=== PATIENT | male | born 1985 | race Caucasian/White ===

== ENCOUNTER 2016-05-16 22:06 | Emergency (ER) | payer OTHER ==
--- NOTE | 2016-05-16 23:15 | ED NURSING NOTES ---
Clinical Report - Nurses [facility] [place] [address] 05/16/2016 22:05 Patient: JERMAINE FITZPATRICK TRIAGE Triage time 22:39. Acuity: LEVEL 5. Chief Complaint: RIGHT LOWER TOOTHACHE and (Jermaine says he has been on and off antibiotics dealing with this for about 2 years. He says tonight the pain is so bad (01/12). He says he did not finish his last antibiotic prescribed (prescribed from Chelsie); prescribed around 5 months ago. He has no seen a dentist.). Alert. No acute distress. SEPSIS SCREEN: Sepsis Screen: negative. Negative (no infection suspected/documented). --22:44 Aubrey Tom R.N. 22:38 05/16/16. BP: 131/90 (regular adult cuff) taken on the left arm, via an automated monitor, while sitting. HR: 100 (normal rate). RR: 16 (regular, unlabored and normal). O2 saturation: 99% on room air. Temp: 97.9 F (oral). Pain level now: 01/12. --22:44 Aubrey Tom R.N. Weight: 68 kg stated. Height/Length: 72 inches Per Patient. BMI: 20.3. --22:39 Aubrey Tom R.N. Medications None. --22:40 Aubrey Tom R.N. Medication/allergy information source: the patient. --22:44 Aubrey Tom R.N. Allergies No Known Drug Allergy. --22:40 Aubrey Tom R.N. History Arrived by private vehicle. Historian: patient. Accompanied by friend. Primary physician (Chelsie in [place]). Onset. (On or off couple years). He has had a sore throat and a subjective fever. He has had mild right ear pain. PAST MEDICAL HX: Immunizations: has received tetanus within 5 years; seasonal influenza. SOCIAL HX: Current every day light tobacco smoker (cigarette)- less than 1/2 a pack per day. History of occasional drug use: marijuana. Recently used drugs yesterday. No alcohol use. He has not traveled outside the [place] The patient was not exposed to MRSA. ABUSE ASSESSMENT: Abuse assessment: The patient was asked "Do you feel safe in your home?" and "Has anyone hurt you or threatened to hurt you?". No report of abuse. SELF HARM ASSESSMENT: A self harm assessment was performed. The patient answered "no" to the question "Do you have thoughts of harming or killing yourself?" and "Have you recently had thoughts about harming or killing others?". FALL RISK ASSESSMENT: Fall risk assessment completed. No fall risk identified. NUTRITIONAL RISK ASSESSMENT: The nutritional risk assessment revealed no deficiencies. FUNCTIONAL ASSESSMENT: Functional assessment: no impairments noted. LEARNING NEEDS ASSESSMENT: The learning needs assessment revealed no barriers. SKIN INTEGRITY ASSESSMENT: Skin integrity risk assessment completed. No skin integrity risk identified. --22:44 Aubrey Tom R.N. PROBLEMS: ADHD - Attention Deficit Hyperactivity Disorder. Burn. --22:40 Aubrey Tom R.N. Assessment GENERAL / NEURO / PSYCH: Alert. Oriented X 4. Appears in no acute distress. [place] Coma Scale: 15- eyes open spontaneously (4); best verbal response- oriented x 4 (5); best motor response- obeys commands (6). Patient appears calm and cooperative. RESPIRATORY: Respirations not labored. SKIN: Skin is warm and dry. --22:44 Aubrey Tom R.N. Interventions ID band on patient. To treatment room. --22:44 Aubrey Tom R.N. PHYSICAL ASSESSMENT 22:45. Ambulatory to room. GENERAL / NEURO / PSYCH: Alert. Oriented X 4. Appears in no acute distress. HEENT: Voice within normal limits. RESPIRATORY: No respiratory distress. Respirations not labored. SKIN: Skin is warm and dry. --23:18 Aubrey Tom R.N. NURSING PROGRESS NOTES 23:10. The initial plan of care for this patient has been created This plan of care was discussed with the patient. Reassurance given to the patient. Two patient identifiers checked. Call light placed in reach. Side rails up x 1. Bed placed in lowest position. Brakes of bed on. Patient ready for evaluation- PA notified. --23:17 Aubrey Tom R.N. 23:23 05/16/2016 Amoxicillin PO Capsules 500 mg given. Allergies verified and confirmed 5 rights. --23:23 Emily Ruby. DISPOSITION / DISCHARGE Departure time: 23:23. Condition at departure: stable. The goals identified in the patient's plan of care were met. No learning barriers present. Discharge instructions provided and reviewed with the patient. Reviewed medication(s) side effects, precautions, dosing and course information. Prescription(s) given to the patient (Jermaine verbalizes importance of finishing all prescribed antibiotic.). Reviewed referral to a dentist for followup (Jermaine verbalizes importance of f/u with dentist. Gave him pamphlet for [facility] and dental resource list.). Patient verbalized understanding. Written instructions provided in Yi. ( Jermaine verbalizes understanding of all d/c instructions including need for f/u with dentist. He has no questions and voices no concerns at this time.). The patient was discharged by the physician multimedia production assistant. He was discharged home and accompanied by family. He left the Emergency Department ambulatory and via private vehicle. Family member driving. ALEXA COMA SCORE: [place] Coma Scale: 15- eyes open spontaneously (4); best verbal response- oriented x 4 (5); best motor response- obeys commands (6). --23:23 Aubrey Tom R.N. 23:21 05/16/16. BP: 131/85 (regular adult cuff) taken on the left arm, via an automated monitor, while sitting. HR: 89 (normal rate). RR: 16 (regular, unlabored and normal). O2 saturation: 99% on room air. Temp: 97.5 F (oral). Pain level now: 01/12. --23:23 Aubrey Tom R.N. Locked/Released at 05/16/2016 23:24 by Emily Ruby,
--- NOTE | 2016-05-16 23:15 | ED CLINICAL REPORT ---
Clinical Report - Physicians/Mid Levels [facility] [address] [place] [address] 05/16/2016 22:05 Patient: JERMAINE FITZPATRICK Time Seen: 232May 16 2016. Arrived- By private vehicle. Historian- patient. HISTORY OF PRESENT ILLNESS Chief Complaint: DENTAL PAIN. This started 1 years [employer] and is still present. Pain described as moderate. No sore throat, mouth sores or nasal discharge. (Patient reports DEVELOPING ON THE RIGHT SIDE OVER THE LAST 1-2 YEARS. REPORTS HE HAS NOT SEEN A DENTIST. DENIES ANY DIFFICULTY SWELLING. REPORTS PAIN RADIATES TO THE RIGHT EAR. DENIES ANY RECENT ANTIBIOTICS, HOWEVER WAS ON ANTIBIOTICS ABOUT 5 MONTHS PREVIOUSLY, DID NOT COMPLETELY TOUCH, NOR DID HE SEE A DENTIST AFTER SUCH. DENIES Sore throat). REVIEW OF SYSTEMS No fever, cough, missed periods or headache. All systems otherwise negative, except as recorded above. SOCIAL HISTORY Smoker- current status unknown. History of drug use: marijuana. Not an IV drug user. No alcohol use. ADDITIONAL NOTES The nursing notes have been reviewed. PHYSICAL EXAM Vital Signs: 05/16/2016 22:38 BP: 131/90. HR: 100. RR: 16. O2 saturation: 99%. Temp: 97.9 F. Pain level now: 10/10. Head: Normal external inspection. ENT: Nose normal. Lips normal. Uvula midline. No mouth ulcerations, tonsillar exudate, muffled or hoarse voice or drooling. The mucous membranes are not dry. (r. gumline erythema, with decay of r. lower molar, with no palpable mass. Uvula midline. No drainage.). Neck: Mild left anterior neck lymphadenopathy present. CVS: Normal heart rate and rhythm. Heart sounds normal. Respiratory: No respiratory distress. Breath sounds normal. Skin: Normal skin color. Neuro: Oriented X 3. PROGRESS AND PROCEDURES Course of Care: UVULA MIDLINE, NO SIGNS OF MARYANN'S ANGINA. PATIENT WITH NO PALPABLE ABSCESS. NO FACIAL SWELLING. Tolerating po. Patient is stable. Physical exam findings are improved. Symptoms better. Patient/family counseled. Disposition: Discharged. CLINICAL IMPRESSION Moderate dental pain. INSTRUCTIONS Drink plenty of fluids. Prescription Medications: Amoxicillin 500 mg tablets: take 1 orally every 8 hours for 10 days. No refills. Ibuprofen 800 mg tablets: take 1 tablet orally every 8 hours for 5 days, as needed for pain. Dispense fifteen (15). No refill. Follow-up: Follow up with your doctor in three days. (Electronically signed by Cristina Benoit P.A.-C 05/16/2016 23:33)
--- NOTE | 2016-05-16 23:15 | ED CLINICAL REPORT ---
Clinical Report - Physicians/Mid Levels [facility] [address] [place] [place] [address] 05/16/2016 22:05 Patient: JERMAINE FITZPATRICK Time Seen: 232May 16 2016. Arrived- By private vehicle. Historian- patient. HISTORY OF PRESENT ILLNESS Chief Complaint: DENTAL PAIN. This started 1 years [employer] and is still present. Pain described as moderate. No sore throat, mouth sores or nasal discharge. (Patient reports DEVELOPING ON THE RIGHT SIDE OVER THE LAST 1-2 YEARS. REPORTS HE HAS NOT SEEN A DENTIST. DENIES ANY DIFFICULTY SWELLING. REPORTS PAIN RADIATES TO THE RIGHT EAR. DENIES ANY RECENT ANTIBIOTICS, HOWEVER WAS ON ANTIBIOTICS ABOUT 5 MONTHS PREVIOUSLY, DID NOT COMPLETELY TOUCH, NOR DID HE SEE A DENTIST AFTER SUCH. DENIES Sore throat). REVIEW OF SYSTEMS No fever, cough, missed periods or headache. All systems otherwise negative, except as recorded above. SOCIAL HISTORY Smoker- current status unknown. History of drug use: marijuana. Not an IV drug user. No alcohol use. ADDITIONAL NOTES The nursing notes have been reviewed. PHYSICAL EXAM Vital Signs: 05/16/2016 22:38 BP: 131/90. HR: 100. RR: 16. O2 saturation: 99%. Temp: 97.9 F. Pain level now: 10/10. Head: Normal external inspection. ENT: Nose normal. Lips normal. Uvula midline. No mouth ulcerations, tonsillar exudate, muffled or hoarse voice or drooling. The mucous membranes are not dry. (r. gumline erythema, with decay of r. lower molar, with no palpable mass. Uvula midline. No drainage.). Neck: Mild left anterior neck lymphadenopathy present. CVS: Normal heart rate and rhythm. Heart sounds normal. Respiratory: No respiratory distress. Breath sounds normal. Skin: Normal skin color. Neuro: Oriented X 3. PROGRESS AND PROCEDURES Course of Care: UVULA MIDLINE, NO SIGNS OF MARYANN'S ANGINA. PATIENT WITH NO PALPABLE ABSCESS. NO FACIAL SWELLING. Tolerating po. Patient is stable. Physical exam findings are improved. Symptoms better. Patient/family counseled. Disposition: Discharged. CLINICAL IMPRESSION Moderate dental pain. INSTRUCTIONS Drink plenty of fluids. Prescription Medications: Amoxicillin 500 mg tablets: take 1 orally every 8 hours for 10 days. No refills. Ibuprofen 800 mg tablets: take 1 tablet orally every 8 hours for 5 days, as needed for pain. Dispense fifteen (15). No refill. Follow-up: Follow up with your doctor in three days. (Electronically signed by Cristina Benoit P.A.-C 05/16/2016 23:33)
--- NOTE | 2016-05-16 23:15 | ED ORDER SUMMARY ---
..... Patient: JERMAINE FITZPATRICK OrderSheet [facility] VisitID: [id number] [address] [place] [address] 31y, M Registration Date/Time: 05/16/2016 ORDER SHEET Weight: 68.0 kg (stated) Allergies: No Known Drug Allergy GENERAL ORDERS: MEDICATION ORDERS: Amoxicillin PO 500 mg (NOW) (23:14 05/16/2016 Nicci P.A.-C) (23:23 HSoule) Motrin PO 800 mg (NOW) (23:14 05/16/2016 Nicci P.A.-C) (Cancelled: Patient [id number]:23 HSoule) IV FLUIDS: ORDER SHEET NOTES: [Electronically signed by Emily Ruby (23:23 05/16/2016)] [Electronically signed by Cristina Benoit P.A.-C (23:33 05/16/2016)] [Electronically locked/signed by Emily Ruby (23:23 05/16/2016)]
--- NOTE | 2016-05-16 23:15 | ED ORDER SUMMARY ---
..... Patient: JERMAINE FITZPATRICK OrderSheet [facility] VisitID: [id number] [address] [place] [address] 31y, M Registration Date/Time: 05/16/2016 ORDER SHEET Weight: 68.0 kg (stated) Allergies: No Known Drug Allergy GENERAL ORDERS: MEDICATION ORDERS: Amoxicillin PO 500 mg (NOW) (23:14 05/16/2016 Nicci P.A.-C) (23:23 HSoule) Motrin PO 800 mg (NOW) (23:14 05/16/2016 Nicci P.A.-C) (Cancelled: Patient [id number]:23 HSoule) IV FLUIDS: ORDER SHEET NOTES: [Electronically signed by Emily Ruby (23:23 05/16/2016)] [Electronically signed by Cristina Benoit P.A.-C (23:33 05/16/2016)] [Electronically locked/signed by Emily Ruby (23:23 05/16/2016)]
--- NOTE | 2016-05-16 23:33 | ED MED RECONCILIATION SUMMARY ---
Patient: JERMAINE FITZPATRICK Medication Reconciliation Report [facility] VisitID: [id number] [address] [place] [address] 31y, M Registration Date/Time: 05/16/2016 Weight: 68.0 kg Height/Length: 72 in. BMI: 20.3 ALLERGIES: No Known Drug Allergy The patient's Home Medications are listed below: NONE. The source(s) of the original Home Medication information: patient The following Medications were given to the patient in the Emergency Department: Amoxicillin [PO] PO 500 mg, administered: 05/16/2016 11:23:00 PM The following Medications were prescribed to the patient: Amoxicillin 500 mg tablets: take 1 orally every 8 hours for 10 days. No refills. -- Cristina Benoit, P.A.-Tyrone Ibuprofen 800 mg tablets: take 1 tablet orally every 8 hours for 5 days, as needed for pain. Dispense fifteen (15). No refill. -- Cristina Benoit, P.A.-C
--- NOTE | 2016-05-16 23:33 | ED MAR SUMMARY ---
..... Medication Administration Record [facility] [address] [place] [address] Patient: JERMAINE FITZPATRICK Visit ID: [id number] 31y, M Weight: 68.0 kg Height/Length: 72 in BMI: 20.3 ALLERGIES: No Known Drug Allergy Given 23:23 05/16/2016 Emily Ruby, Medication Administered: AMOXICILLIN [PO], Dose: 500 mg Capsules PO. Medication Ordered: Amoxicillin PO 500 mg (NOW).
--- NOTE | 2016-05-16 23:33 | ED MAR SUMMARY ---
..... Medication Administration Record [facility] [address] [place] [address] Patient: JERMAINE FITZPATRICK Visit ID: [id number] 31y, M Weight: 68.0 kg Height/Length: 72 in BMI: 20.3 ALLERGIES: No Known Drug Allergy Given 23:23 05/16/2016 Emily Ruby, Medication Administered: AMOXICILLIN [PO], Dose: 500 mg Capsules PO. Medication Ordered: Amoxicillin PO 500 mg (NOW).
--- NOTE | 2016-05-16 23:33 | ED DISCHARGE INSTRUCTIONS ---
Patient: JERMAINE FITZPATRICK General Instructions [facility] VisitID: [id number] [place] [address] 31y, M Registration Date/Time: 05/16/2016 Moderate dental pain. INSTRUCTIONS Drink plenty of fluids. Prescription Medications: Amoxicillin 500 mg tablets: take 1 orally every 8 hours for 10 days. No refills. Ibuprofen 800 mg tablets: take 1 tablet orally every 8 hours for 5 days, as needed for pain. Dispense fifteen (15). No refill. Follow-up: Follow up with your doctor in three days. ADDITIONAL INFORMATION Dental Pain A crack or cavity in the tooth, which exposes the sensitive inner area of the tooth can cause tooth pain. An infection in the gum or the root of the tooth can cause pain and swelling. The pain is often made worse by drinking hot or cold fluids, or biting on hard foods. Pain may spread from the tooth to the ear or jaw on the same side. Home Care: Avoid hot and cold foods and liquids since your tooth may be sensitive to temperature changes. If your tooth is chipped or cracked, or if there is a large open cavity, apply OIL OF CLOVES (available arau-bbg-kvcuxnm in drug stores) directly to the tooth to reduce pain. Some pharmacies carry an mipi-mpg-giyppni "toothache kit." This contains a paste, which can be applied over the exposed tooth to decrease sensitivity. A cold pack on your jaw over the sore area may help reduce pain. You may use acetaminophen (Tylenol) or ibuprofen (Motrin, Advil) to control pain, unless another medicine was prescribed. [ NOTE: If you have chronic liver or kidney disease or ever had a stomach ulcer or GI bleeding, talk with your doctor before using these medicines.] If you have signs of an infection, an antibiotic will be given. Take it as directed. Follow-Up as directed with a dentist. Your pain may go away with the treatment given. However, only a dentist can fully evaluate and treat the cause and prevent the pain from coming back again. TOOTHACHE IS A SIGN OF DISEASE IN YOUR TOOTH AND SHOULD BE EXAMINED AND TREATED BY A DENTIST. Get Prompt Medical Attention if any of the following occur: Your face becomes swollen or red Pain worsens or spreads to the neck Fever over 100.4 F (38.0 C) Unusual drowsiness; headache or stiff neck; weakness or fainting Pus drains from the tooth Difficulty swallowing or breathing Dental Abscess A dental abscess is an infection of the tooth socket. It often starts with a crack or cavity in the tooth. A pocket of pus forms between the tooth and the bone. The infection causes pain and swelling of the gum, cheek or jaw. The pain is often made worse by drinking hot or cold fluids, or biting on hard foods. Pain may be felt in the facial sinus or in the ear. A severe infection can interfere with swallowing and breathing. In the emergency department or clinic, you will be started on an antibiotic. However, final treatment requires drainage of the pus. This can be done by removing the tooth or performing a root canal. A root canal is done by an oral surgeon and involves drilling an opening in the tooth to drain the pus. After the infection has healed, a crown is placed over the tooth. Home care The following guidelines will help you care for your abscess at home: Avoid hot and cold foods and liquids since your tooth may be sensitive to temperature changes. If your tooth is chipped or cracked, or if there is a large open cavity, applyoil of cloves(available bezc-xuv-kswutmv in drug stores) directly to the tooth to reduce pain. Some pharmacies carry an vhrp-oyh-tldaghj "toothache kit". This contains oil of cloves and a paste, which can be applied over the exposed tooth to decrease sensitivity. Apply an ice pack (ice cubes in a plastic bag, wrapped in a towel) over the injured area for 20 minutes every 12 hours the first day for pain relief. Continue this 34 times a day until the pain and swelling goes away. You may use acetaminophen or ibuprofen to control pain, unless another medicine was prescribed. If you have chronic liver or kidney disease or ever had a stomach ulcer or GI bleeding, talk with your doctor before using these medicines. An antibiotic will be prescribed. Take it as directed until completed, even if you are feeling better sooner. Follow-up care Follow up as directed with a dentist or oral surgeon. Even though your pain may improve with the treatment given today, only a dentist or oral surgeon can provide full treatment for this problem. When to seek medical care Get prompt medical attention or contact your doctor if any of the following occur: Your face or eyelid becomes swollen or red Pain worsens or spreads to the neck Fever over 100.4F (38.0C) Unusual drowsiness; headache or stiff neck; weakness, or fainting Pus drains from the gum or tooth Difficulty talking, swallowing or breathing Unable to open your mouth wide Amoxicillin Trihydrate Oral tablet What is this medicine? AMOXICILLIN (a mox i TONIO in) is a penicillin antibiotic. It is used to treat certain kinds of bacterial infections. It will not work for colds, flu, or other viral infections. How should I use this medicine? Take this medicine by mouth with a glass of water. Follow the directions on your prescription label. You may take this medicine with food or on an empty stomach. Take your medicine at regular intervals. Do not take your medicine more often than directed. Take all of your medicine as directed even if you think your are better. Do not skip doses or stop your medicine early. Talk to your voice network engineer regarding the use of this medicine in children. While this drug may be prescribed for selected conditions, precautions do apply. What side effects may I notice from receiving this medicine? Side effects that you should report to your doctor or health wound care physician as soon as possible: allergic reactions like skin rash, itching or hives, swelling of the face, lips, or tongue breathing problems dark urine redness, blistering, peeling or loosening of the skin, including inside the mouth seizures severe or watery diarrhea trouble passing urine or change in the amount of urine unusual bleeding or bruising unusually weak or tired yellowing of the eyes or skin Side effects that usually do not require medical attention (report to your doctor or health wound care physician if they continue or are bothersome): dizziness headache stomach upset trouble sleeping What may interact with this medicine? amiloride control pills chloramphenicol macrolides probenecid sulfonamides tetracyclines What if I miss a dose? If you miss a dose, take it as soon as you can. If it is almost time for your next dose, take only that dose. Do not take double or extra doses. Where should I keep my medicine? Keep out of the reach of children. Store between 68 and 77 degrees F (20 and 25 degrees C). Keep bottle closed tightly. Throw away any unused medicine after the expiration date. What should I tell my health care provider before I take this medicine? They need to know if you have any of these conditions: asthma kidney disease an unusual or allergic reaction to amoxicillin, other penicillins, cephalosporin antibiotics, other medicines, foods, dyes, or preservatives or trying to get breast-feeding What should I watch for while using this medicine? Tell your doctor or health wound care physician if your symptoms do not improve in 2 or 3 days. Take all of the doses of your medicine as directed. Do not skip doses or stop your medicine early. If you are diabetic, you may get a false positive result for sugar in your urine with certain brands of urine tests. Check with your doctor. Do not treat diarrhea with xpar-svn-minjkpd products. Contact your doctor if you have diarrhea that lasts more than 2 days or if the diarrhea is severe and watery. You have been given the following additional information: Dental Pain Tooth Abscess Amoxicillin Trihydrate Oral tablet (Electronically signed by Cristina Benoit P.A.-C 05/16/2016 23:33)
--- NOTE | 2016-05-16 23:33 | ED DISCHARGE INSTRUCTIONS ---
Patient: JERMAINE FITZPATRICK General Instructions [facility] VisitID: [id number] [place] [address] 31y, M Registration Date/Time: 05/16/2016 Moderate dental pain. INSTRUCTIONS Drink plenty of fluids. Prescription Medications: Amoxicillin 500 mg tablets: take 1 orally every 8 hours for 10 days. No refills. Ibuprofen 800 mg tablets: take 1 tablet orally every 8 hours for 5 days, as needed for pain. Dispense fifteen (15). No refill. Follow-up: Follow up with your doctor in three days. ADDITIONAL INFORMATION Dental Pain A crack or cavity in the tooth, which exposes the sensitive inner area of the tooth can cause tooth pain. An infection in the gum or the root of the tooth can cause pain and swelling. The pain is often made worse by drinking hot or cold fluids, or biting on hard foods. Pain may spread from the tooth to the ear or jaw on the same side. Home Care: Avoid hot and cold foods and liquids since your tooth may be sensitive to temperature changes. If your tooth is chipped or cracked, or if there is a large open cavity, apply OIL OF CLOVES (available qurz-zfs-oorwwct in drug stores) directly to the tooth to reduce pain. Some pharmacies carry an vuwk-wey-edyfioh "toothache kit." This contains a paste, which can be applied over the exposed tooth to decrease sensitivity. A cold pack on your jaw over the sore area may help reduce pain. You may use acetaminophen (Tylenol) or ibuprofen (Motrin, Advil) to control pain, unless another medicine was prescribed. [ NOTE: If you have chronic liver or kidney disease or ever had a stomach ulcer or GI bleeding, talk with your doctor before using these medicines.] If you have signs of an infection, an antibiotic will be given. Take it as directed. Follow-Up as directed with a dentist. Your pain may go away with the treatment given. However, only a dentist can fully evaluate and treat the cause and prevent the pain from coming back again. TOOTHACHE IS A SIGN OF DISEASE IN YOUR TOOTH AND SHOULD BE EXAMINED AND TREATED BY A DENTIST. Get Prompt Medical Attention if any of the following occur: Your face becomes swollen or red Pain worsens or spreads to the neck Fever over 100.4 F (38.0 C) Unusual drowsiness; headache or stiff neck; weakness or fainting Pus drains from the tooth Difficulty swallowing or breathing Dental Abscess A dental abscess is an infection of the tooth socket. It often starts with a crack or cavity in the tooth. A pocket of pus forms between the tooth and the bone. The infection causes pain and swelling of the gum, cheek or jaw. The pain is often made worse by drinking hot or cold fluids, or biting on hard foods. Pain may be felt in the facial sinus or in the ear. A severe infection can interfere with swallowing and breathing. In the emergency department or clinic, you will be started on an antibiotic. However, final treatment requires drainage of the pus. This can be done by removing the tooth or performing a root canal. A root canal is done by an oral surgeon and involves drilling an opening in the tooth to drain the pus. After the infection has healed, a crown is placed over the tooth. Home care The following guidelines will help you care for your abscess at home: Avoid hot and cold foods and liquids since your tooth may be sensitive to temperature changes. If your tooth is chipped or cracked, or if there is a large open cavity, applyoil of cloves(available ijmj-mfm-rrfzmkr in drug stores) directly to the tooth to reduce pain. Some pharmacies carry an sczw-emd-aytzzxe "toothache kit". This contains oil of cloves and a paste, which can be applied over the exposed tooth to decrease sensitivity. Apply an ice pack (ice cubes in a plastic bag, wrapped in a towel) over the injured area for 20 minutes every 12 hours the first day for pain relief. Continue this 34 times a day until the pain and swelling goes away. You may use acetaminophen or ibuprofen to control pain, unless another medicine was prescribed. If you have chronic liver or kidney disease or ever had a stomach ulcer or GI bleeding, talk with your doctor before using these medicines. An antibiotic will be prescribed. Take it as directed until completed, even if you are feeling better sooner. Follow-up care Follow up as directed with a dentist or oral surgeon. Even though your pain may improve with the treatment given today, only a dentist or oral surgeon can provide full treatment for this problem. When to seek medical care Get prompt medical attention or contact your doctor if any of the following occur: Your face or eyelid becomes swollen or red Pain worsens or spreads to the neck Fever over 100.4F (38.0C) Unusual drowsiness; headache or stiff neck; weakness, or fainting Pus drains from the gum or tooth Difficulty talking, swallowing or breathing Unable to open your mouth wide Amoxicillin Trihydrate Oral tablet What is this medicine? AMOXICILLIN (a mox i TONIO in) is a penicillin antibiotic. It is used to treat certain kinds of bacterial infections. It will not work for colds, flu, or other viral infections. How should I use this medicine? Take this medicine by mouth with a glass of water. Follow the directions on your prescription label. You may take this medicine with food or on an empty stomach. Take your medicine at regular intervals. Do not take your medicine more often than directed. Take all of your medicine as directed even if you think your are better. Do not skip doses or stop your medicine early. Talk to your civil service worker regarding the use of this medicine in children. While this drug may be prescribed for selected conditions, precautions do apply. What side effects may I notice from receiving this medicine? Side effects that you should report to your doctor or health housekeeper caregiver as soon as possible: allergic reactions like skin rash, itching or hives, swelling of the face, lips, or tongue breathing problems dark urine redness, blistering, peeling or loosening of the skin, including inside the mouth seizures severe or watery diarrhea trouble passing urine or change in the amount of urine unusual bleeding or bruising unusually weak or tired yellowing of the eyes or skin Side effects that usually do not require medical attention (report to your doctor or health housekeeper caregiver if they continue or are bothersome): dizziness headache stomach upset trouble sleeping What may interact with this medicine? amiloride control pills chloramphenicol macrolides probenecid sulfonamides tetracyclines What if I miss a dose? If you miss a dose, take it as soon as you can. If it is almost time for your next dose, take only that dose. Do not take double or extra doses. Where should I keep my medicine? Keep out of the reach of children. Store between 68 and 77 degrees F (20 and 25 degrees C). Keep bottle closed tightly. Throw away any unused medicine after the expiration date. What should I tell my health care provider before I take this medicine? They need to know if you have any of these conditions: asthma kidney disease an unusual or allergic reaction to amoxicillin, other penicillins, cephalosporin antibiotics, other medicines, foods, dyes, or preservatives or trying to get breast-feeding What should I watch for while using this medicine? Tell your doctor or health housekeeper caregiver if your symptoms do not improve in 2 or 3 days. Take all of the doses of your medicine as directed. Do not skip doses or stop your medicine early. If you are diabetic, you may get a false positive result for sugar in your urine with certain brands of urine tests. Check with your doctor. Do not treat diarrhea with fqfg-hfr-upsopdd products. Contact your doctor if you have diarrhea that lasts more than 2 days or if the diarrhea is severe and watery. You have been given the following additional information: Dental Pain Tooth Abscess Amoxicillin Trihydrate Oral tablet (Electronically signed by Cristina Benoit P.A.-C 05/16/2016 23:33)
--- NOTE | 2016-05-16 23:33 | ED MED RECONCILIATION SUMMARY ---
Patient: JERMAINE FITZPATRICK Medication Reconciliation Report [facility] VisitID: [id number] [address] [place] [address] 31y, M Registration Date/Time: 05/16/2016 Weight: 68.0 kg Height/Length: 72 in. BMI: 20.3 ALLERGIES: No Known Drug Allergy The patient's Home Medications are listed below: NONE. The source(s) of the original Home Medication information: patient The following Medications were given to the patient in the Emergency Department: Amoxicillin [PO] PO 500 mg, administered: 05/16/2016 11:23:00 PM The following Medications were prescribed to the patient: Amoxicillin 500 mg tablets: take 1 orally every 8 hours for 10 days. No refills. -- Cristina Benoit, P.A.-Tyrone Ibuprofen 800 mg tablets: take 1 tablet orally every 8 hours for 5 days, as needed for pain. Dispense fifteen (15). No refill. -- Cristina Benoit, P.A.-C
== END 2016-05-17 00:20 | disposition home or self-care (01) ==
LOC: ED SRH 22:06
DX: K08.89 Other specified disorders of teeth and supporting structures (principal)